=== PATIENT | female | born 1955 | race Caucasian/White ===

== ENCOUNTER 2016-08-01 21:13 | Emergency (ER) | payer OTHER ==
[~2016-08-01] VITALS: Ht 152.4 cm; Wt 87.5 kg
[2016-08-01 21:53] VITALS: BP 133/60
[2016-08-01 22:11] LABS: OBC FLU VALID
--- NOTE | 2016-08-01 22:36 | PHYS DOC ---
Past Medical History Past Medical History: Arthritis, Diabetes-Type II, Hypertension Additional Past Medical Histor: pt reports possible liver damage Past Surgical History: Cholecystectomy Alcohol Use: None Drug Use: None Adult General Chief Complaint Chief Complaint: CHEST WALL PAIN HPI HPI Patient is a 61 year old female who comes to the ED from work complaining of a cough for 2 days, pain in the center of her chest when she coughs and when she takes a deep breath. She's felt hot and cold for the last 2 days. She's had a cough. No URI symptoms. She has no history of heart disease. She's never been a smoker. She does not have lung disease. Her chest hurts in the middle when she coughs and when she takes a deep breath. 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 She has not had an influenza vaccine this season. PCP Dr. Trujillo Review of Systems Review of Systems Constitutional: She has felt hot and cold. Eyes: Denies change in visual acuity, redness, or eye pain [] HENT: Denies nasal congestion or sore throat [] Respiratory: As in history of present illness Cardiovascular: Chest pain as in history of present illness, does not sound cardiac, is worsened by cough and deep breath GI: Denies abdominal pain, nausea, vomiting, bloody stools or diarrhea [] : Denies dysuria or hematuria [] Musculoskeletal: Denies back pain or joint pain [] Integument: Denies rash or skin lesions [] Neurologic: Denies headache, focal weakness or sensory changes [] Allergies Allergies Allergies Coded Allergies Type Severity Reaction Last Updated Verified aspirin Allergy Intermediate 08/01/16 Yes Physical Exam Physical Exam Constitutional: Well developed, well nourished, no acute distress, non-toxic appearance. Pulse ox on room air 98-99%. Alert, good color, mentating normally. HENT: Normocephalic, atraumatic, bilateral external ears normal, nose normal. [ ] Eyes: conjunctiva normal, no discharge. [] Neck: Normal range of motion, no stridor. [] Cardiovascular:Heart rate regular rhythm, no murmur [] Lungs & Thorax: Bilateral breath sounds clear to auscultation [] Skin: Warm, dry, no erythema, no rash. [] Extremities: No tenderness, no cyanosis, no clubbing, ROM intact, no edema. [] Neurologic: Alert and oriented X 3, normal motor function, normal sensory function, no focal deficits noted. [] Current Patient Data Vital Signs Vital Signs Date Time Temp Pulse Resp B/P Pulse Ox O2 Delivery O2 Flow Rate FiO2 08/01/16 21:53 98 16 133/60 99 Room Air 08/01/16 21:29 98.9 98.9 Lab Values Laboratory Tests Test 08/01/16 21:36 Influenza Type A Antigen Negative (NEGATIVE) Influenza Type B Antigen Negative (NEGATIVE) EKG EKG 12-lead EKG read by me. Sinus tachycardia. Heart rate 102. There are no acute ST or T wave changes indicative of ischemia or infarction. No STEMI. 2122 [] Radiology/Procedures Radiology/Procedures Two-view chest x-ray read by me. No acute cardiopulmonary process. [] Course & Med Decision Making Course & Med Decision Making Pertinent Labs and Imaging studies reviewed. (See chart for details) 61-year-old female not feeling well today with subjective fever, chills, cough, chest pain with cough and deep breath. She is not a smoker, no history of heart or lung disease. Influenza and chest x-ray are negative. I believe she has a viral illness of some type that is not influenza. Discussed with the patient resting at home, antipyretics, reevaluate if worse. [] Dragon Disclaimer Dragon Disclaimer This electronic medical record was generated, in whole or in part, using a voice recognition dictation system. Departure Departure Impression: Primary Impression: Viral syndrome Additional Impression: Bronchitis Disposition: 01 HOME, SELF-CARE Condition: STABLE Referrals: TRINA TRUJILLO MD (PCP) Patient Instructions: Acute Bronchitis, [id number] Additional Instructions: As we discussed, your chest x-ray is normal and your influenza test is negative. I believe antibiotics will not help you and you have a viral illness. Rest, fluids, Tylenol or ibuprofen for fever and chills. Return if you become short of air or have new symptoms develop. Problem Qualifiers GUILLAUME LIRIANO MD Aug 01, 2016 22:36
--- NOTE | 2016-08-02 06:41 | EKG ---
[facility] [address] [place] [address] Test Date: 2016-08-01 Test Time: 21:23:11 Pat Name: NILESH LYON Department: Room: Gender: F Photographer Aerial: : 1955 Requested By: GUILLAUME LIRIANO Order Number: [id number] Reading MD: Arnadu Broussard Measurements Intervals [place] Rate: 102 P: 14 NE: 126 QRS: 4 QRSD: 86 T: 43 QT: 332 QTc: 437 Interpretive Statements SINUS TACHYCARDIA Electronically Signed On 08-03-2016 9:57:20 GENERAL PURCHASING [employer]ENT by Arnaud Broussard
--- NOTE | 2016-08-02 08:25 | RAD ---
Chest, 2 views, 08/01/2016: History: Cough, shortness of breath Comparison is made to a study from 08/21/2010. The heart size and pulmonary vascularity are normal. No pulmonary infiltrates are seen. There is no evidence of pleural fluid. Moderate hypertrophic spurring is present in the spine. IMPRESSION: No acute cardiopulmonary abnormality is detected.
== END 2016-08-01 22:44 | disposition home or self-care (01) ==
LOC: ER 21:13
DX: J40 Bronchitis, not specified as acute or chronic (principal); B34.9 Viral infection, unspecified; M19.90 Unspecified osteoarthritis, unspecified site; E11.9 Type 2 diabetes mellitus without complications; I10 Essential (primary) hypertension; Z90.49 Acquired absence of other specified parts of digestive tract; Z88.6 Allergy status to analgesic agent
CPT/HCPCS: 71020; 87804; 93005; 99285-25

== ENCOUNTER 2016-11-08 12:20 | Emergency (ER) | payer OTHER | END 2016-11-08 12:55 | disposition left against medical advice (07) | LOC: ER 12:53 | DX: H92.09 Otalgia, unspecified ear (principal); Z88.6 Allergy status to analgesic agent; Z53.21 Procedure and treatment not carried out due to patient leaving prior to being seen by health care provider ==

== ENCOUNTER 2017-02-14 20:42 | Inpatient (IN) | payer OTHER ==
[~2017-02-14] VITALS: Ht 162.6 cm; Wt 90.7 kg
[2017-02-14 21:19] LABS: BASO # 0.1 x10^3/uL (0.0-0.2); BASO % 1 % (0-3); EOS % 1 % (0-3); HEMATOCRIT 38.6 % (36.0-47.0); HEMOGLOBIN 13.1 g/dL (12.0-15.5); LYMPH # 2.4 x10^3/uL (1.0-4.8); LYMPH % 22 % (24-48); MEAN CORPUSCULAR HEMOGLOBIN 31 pg (25-35); MEAN CORPUSCULAR HGB CONC 34 g/dL (31-37); MEAN CORPUSCULAR VOLUME 91 fL (79-100); MONO % 6 % (0-9); NEUT % 70 % (31-73); PLATELET COUNT 170 x10^3/uL (140-400); RED BLOOD COUNT 4.24 x10^6/uL (3.50-5.40); RED CELL DISTRIBUTION WIDTH 13.8 % (11.5-14.5); WHITE BLOOD COUNT 11.1 x10^3/uL (4.0-11.0)
[2017-02-14] MEDS ORDERED: IV NORMAL SALINE 500ML BAG 500 ML IV SCH (21:30)
[2017-02-14 21:32] LABS: INR 1.4 (0.8-1.1); PROTHROMBIN TIME PATIENT 16.4 SEC (11.7-14.0)
[2017-02-14 21:39] LABS: CALCIUM 8.9 mg/dL (8.5-10.1); CREATININE 0.8 mg/dL (0.6-1.0); GFR 72.9; POTASSIUM 3.8 mmol/L (3.5-5.1)
[2017-02-14 21:44] LABS: ALBUMIN 2.9 g/dL (3.4-5.0); ALBUMIN/GLOBULIN RATIO 0.8 (1.0-1.7); TOTAL PROTEIN 6.4 g/dL (6.4-8.2)
[2017-02-14 22:46] LABS: NEG OBC FOB NEG; POS OBC FOB POS
--- NOTE | 2017-02-14 22:59 | PHYS DOC ---
Past Medical History Past Medical History: Arthritis, Diabetes-Type II, Hypertension Additional Past Medical Histor: pt reports possible liver damage Past Surgical History: Cholecystectomy Alcohol Use: None Drug Use: None Adult General Chief Complaint Chief Complaint: RECTAL BLEED HPI HPI Patient is a 62 year old female who presents with the complaint of black stools and black vomit. Patient states she has had 6 or 7 loose stools today that are black in color and has vomited twice with black substance in it. No red blood has been seen. She has no history of this. She's never had a bleeding ulcer. She is not on any blood thinners. She denies abdominal or rectal pain. Patient has had a history of chest pain and was seen at [facility] and had cardiology evaluation in November 2016 including a stress test. They told her that her chest pain is from stomach acid and put her on Nexium. She did not have endoscopy. The Nexium has not helped her symptoms of lower chest pain. She does not feel particularly weak or dizzy but she doesn't feel well. Past medical history includes diabetes and hypertension. No blood thinners. No history of NV. No history of GI bleed or bleeding ulcer. PCP Review of Systems Review of Systems Constitutional: Denies fever or chills [] HENT: Denies nasal congestion or sore throat [] Respiratory: Denies cough or shortness of breath [] Cardiovascular: As in history of present illness GI: As in history of present illness : Denies dysuria or hematuria [] Musculoskeletal: Denies back pain or joint pain [] Integument: Denies rash or skin lesions [] Neurologic: Denies headache, focal weakness or sensory changes [] Current Medications Current Medications Current Medications Medications (Trade) Dose Ordered Sig/Doreen Start Time Stop Time Status Last Admin Dose Admin Sodium Chloride 500 ml @ 500 mls/hr Q1H 02/14/17 21:30 02/14/17 21:39 DC 02/14/17 21:39 500 MLS/HR Allergies Allergies Allergies Coded Allergies Type Severity Reaction Last Updated Verified No Known Drug Allergies 02/14/17 No Physical Exam Physical Exam Constitutional: Well developed, well nourished, no acute distress, non-toxic appearance. Alert, mentating normally, vital signs stable HENT: Normocephalic, atraumatic, bilateral external ears normal, nose normal. [] Eyes: conjunctiva normal, no discharge. [] Neck: Normal range of motion, no stridor. [] Cardiovascular:Heart rate regular rhythm, no murmur [] Lungs & Thorax: Bilateral breath sounds clear to auscultation [] Abdomen: Bowel sounds normal, soft, nondistended, no tenderness, no masses, no pulsatile masses. [] Rectal exam: External unremarkable. Loose black stool in the vault was sent for occult blood. Skin: Warm, dry, no erythema, no rash. [] Extremities: No tenderness, no cyanosis, no clubbing, ROM intact, no edema. [] Neurologic: Alert and oriented X 3, normal motor function, normal sensory function, no focal deficits noted. [] Current Patient Data Vital Signs Vital Signs Date Time Temp Pulse Resp B/P (MAP) Pulse Ox O2 Delivery O2 Flow Rate FiO2 02/14/17 20:52 99.0 108 20 124/59 (80) 98 Room Air 99.0 Lab Values Laboratory Tests Test 02/14/17 21:05 White Blood Count 11.1 x10^3/uL (4.0-11.0) H Red Blood Count 4.24 x10^6/uL (3.50-5.40) Hemoglobin 13.1 g/dL (12.0-15.5) Hematocrit 38.6 % (36.0-47.0) Mean Corpuscular Volume 91 fL (79-100) Mean Corpuscular Hemoglobin 31 pg (25-35) Mean Corpuscular Hemoglobin Concent 34 g/dL (31-37) Red Cell Distribution Width 13.8 % (11.5-14.5) Platelet Count 170 x10^3/uL (140-400) Neutrophils (%) (Auto) 70 % (31-73) Lymphocytes (%) (Auto) 22 % (24-48) L Monocytes (%) (Auto) 6 % (0-9) Eosinophils (%) (Auto) 1 % (0-3) Basophils (%) (Auto) 1 % (0-3) Neutrophils # (Auto) 7.8 x10^3uL (1.8-7.7) H Lymphocytes # (Auto) 2.4 x10^3/uL (1.0-4.8) Monocytes # (Auto) 0.6 x10^3/uL (0.0-1.1) Eosinophils # (Auto) 0.1 x10^3/uL (0.0-0.7) Basophils # (Auto) 0.1 x10^3/uL (0.0-0.2) Prothrombin Time 16.4 SEC (11.7-14.0) H Prothrombin Time INR 1.4 (0.8-1.1) H PTT 35 SEC (24-38) Sodium Level 143 mmol/L (136-145) Potassium Level 3.8 mmol/L (3.5-5.1) Chloride Level 107 mmol/L (98-107) Carbon Dioxide Level 26 mmol/L (21-32) Anion Gap 10 (6-14) Blood Urea Nitrogen 27 mg/dL (7-20) H Creatinine 0.8 mg/dL (0.6-1.0) Estimated GFR (Cockcroft-Gault) 72.9 BUN/Creatinine Ratio 34 (6-20) H Glucose Level 186 mg/dL (70-99) H Calcium Level 8.9 mg/dL (8.5-10.1) Total Bilirubin 2.0 mg/dL (0.2-1.0) H Aspartate Amino Transferase (AST) 33 U/L (15-37) Alanine Aminotransferase (ALT) 29 U/L (14-59) Alkaline Phosphatase 129 U/L (46-116) H Total Protein 6.4 g/dL (6.4-8.2) Albumin 2.9 g/dL (3.4-5.0) L Albumin/Globulin Ratio 0.8 (1.0-1.7) L Laboratory Tests 02/14/17 21:05 Laboratory Tests 02/14/17 21:05 EKG EKG [] Radiology/Procedures Radiology/Procedures [] Course & Med Decision Making Course & Med Decision Making Pertinent Labs and Imaging studies reviewed. (See chart for details) 62-year-old female without history of GI bleed or bleeding ulcer presents with 2 episodes of vomiting with black in it and 6 or 7 loose black stools. Her stool is fecal occult blood positive. Patient is mildly tachycardic and was given IV fluids 500 mL. She remained stable in the ED. She is not anemic. I discussed the case with Dr. Payne taking calls for . She will admit the patient. I wrote bridge orders. [] Dragon Disclaimer Dragon Disclaimer This electronic medical record was generated, in whole or in part, using a voice recognition dictation system. Departure Departure Impression: Primary Impression: GI bleed Disposition: 09 ADMITTED INPATIENT Admitting Physician: Blanca Mac Condition: STABLE Referrals: BLANCA MAC MD (PCP) GUILLAUME LIRIANO MD Feb 14, 2017 22:59
[2017-02-14] MEDS ORDERED: ONDANSETRON PF 4 MG/2 ML VIAL. IV PRN (23:00)
[2017-02-14] MEDS ORDERED: ONDANSETRON PF 4 MG/2 ML VIAL. IV ONE (23:15)
[2017-02-15] VITALS (12 sets, daily range): BP systolic 85–136; BP diastolic 49–71
[2017-02-15] MEDS ORDERED: PANTOPRAZOLE IV PUSH 40 MG VIAL. IVP ONE (01:00)
[2017-02-15] MEDS: PANTOPRAZOLE SODIUM IV 80 MG in IV NORMAL SALINE 100ML 100 ML IV SCH ×3 (02:04→21:23)
[2017-02-15] MEDS ORDERED: GLIP5TAB10 PO (03:06)
[2017-02-15] MEDS ORDERED: ESOM40CA PO (03:06)
[2017-02-15] MEDS ORDERED: POTA10TA5 PO (03:06)
[2017-02-15] MEDS ORDERED: METF-620 PO (03:06)
[2017-02-15] MEDS ORDERED: ASPI-630 PO (03:06)
[2017-02-15] MEDS ORDERED: TRIA1TAB3 PO (03:06)
[2017-02-15] MEDS ORDERED: METF500T4 PO (03:06)
[2017-02-15] MEDS ORDERED: IBUP-1007 PO (03:06)
[2017-02-15] MEDS ORDERED: GLIP10TA13 PO (03:06)
--- NOTE | 2017-02-15 03:50 | ACF ---
Admission Forms Criteria GASTROINTESTINAL BLEEDING Clinical Indications for Inpatient Care (Place 'X' for any and all applicable criteria): Ongoing inpatient care may be indicated for gastrointestinal bleeding with ANY ONE of the following (4)(20)(21)(22)(23)(24): [ ]I. Active bleeding (eg, fresh voluminous blood in emesis or nasogastric aspirate, or per rectum) [X]II. Hemodynamic instability [ ]III. Anticoagulation therapy or coagulopathy ((eg, advanced liver disease, irreversible anticoagulation) [ ]IV. Ischemic colitis (22) [ ]V. Endoscopy showing arterial bleeding, adherent clot, nonbleeding visible vessel, varices, flat red spots, ulcer size greater than 2 cm, or portal hypertensive gastropathy [ ]. High-risk low platelet count [ ]VII. Anemia requiring inpatient care as indicated by ANY ONE of the following a)[ ] Cognitive impairment b)[ ] Syncope c)[ ] Heart failure d)[ ] Chest pain e)[ ] Dyspnea f)[ ] Other findings suggesting inadequate perfusion (eg, peripheral or myocardial ischemia, end organ dysfunction) [ ]VIII. High-risk low platelet count [ ]IX. Suspected variceal cause of bleeding as indicated by ANY ONE of the following(27)(28): a)[ ] Known varices b)[ ] Hepatomegaly or splenomegaly c)[ ] Ascites d)[ ] Jaundice or scleral icterus e)[ ] History of liver disease (eg, cirrhosis) f)[ ] Physical findings of portal hypertension (eg, caput medusa) g)[ ] Comorbid disorder indicating risk for portal vein thrombosis (eg , abdominal surgery, sepsis, shock, exchange transfusion, prior umbilical vein catheterization) Extended stay may be needed until ALL of the following are present(20)(38)(47): [ ]a) Hemodynamic stability [ ]b) No evidence of active bleeding (eg, stable Hematocrit) [ ]c) Platelet count, prothrombin time, and partial thromboplastin time acceptable for next level of care [ ]d) Surgical or other acute intervention not needed [ ]e) Oral hydration and diet tolerated The original [employer] content created by Yen Murillo has been revised. The portions of the content which have been revised are identified through the use of italic text or in bold, and Yen Murillo has neither reviewed nor approved the modified material. All other unmodified content is copyright [facility]. Please see references footnoted in the original [facility] edition 2016 Admission Criteria Met?: Yes ANANYA KING Feb 15, 2017 03:50
[2017-02-15 05:09] LABS: BASO # 0.1 x10^3/uL (0.0-0.2); BASO % 1 % (0-3); EOS % 2 % (0-3); HEMATOCRIT 33.5 % (36.0-47.0); HEMOGLOBIN 11.4 g/dL (12.0-15.5); LYMPH % 33 % (24-48); MEAN CORPUSCULAR HEMOGLOBIN 32 pg (25-35); MEAN CORPUSCULAR HGB CONC 34 g/dL (31-37); MEAN CORPUSCULAR VOLUME 92 fL (79-100); MONO % 8 % (0-9); NEUT % 57 % (31-73); PLATELET COUNT 156 x10^3/uL (140-400); RED BLOOD COUNT 3.63 x10^6/uL (3.50-5.40); RED CELL DISTRIBUTION WIDTH 13.9 % (11.5-14.5); WHITE BLOOD COUNT 12.3 x10^3/uL (4.0-11.0)
--- NOTE | 2017-02-15 08:09 | PDOC1 ---
History and Physical Date of Admission Date of Admission DATE: 02/14/17 Identification/Chief Complaint Chief Complaint Throwing up blood Problems: Source Source: Patient History of Present Illness History of Present Illness Pt states that around 10am yesterday morning she started throwing up blood. She decided to not come in to be seen right away because it stopped. She had diarrhea off and on throughout the day with dark stools. Before going to work around 4pm, started vomiting blood again so decided to come to the ER. She has never had anything similar. Pt did not really eat anything yesterday; had spaghetti the evening before. Denies any abdominal pain. Past Medical History Cardiovascular: HTN Pulmonary: No pertinent hx GI: GERD Heme/Onc: No pertinent hx Hepatobiliary: No pertinent hx Psych: No pertinent hx Rheumatologic: No pertinent hx Infectious disease: No pertinent hx ENT: No pertinent hx Renal/: No pertinent hx Endocrine: Diabetes Dermatology: No pertinent hx Past Surgical History Past Surgical History: Cholecystectomy Family History Family History: No Significant Social History Smoke: No ALCOHOL: none Drugs: None Current Problem List Problem List Problems Medical Problems: (1) GI bleed Status: Acute Problems: Current Medications Current Medications Current Medications Sodium Chloride 500 ml @ 500 mls/hr Q1H IV Last administered on 02/14/17 21:39 ; Start 02/14/17 at 21:30; Stop 02/14/17 at 21:39; Status DC Ondansetron HCl (Zofran) 4 mg 1X ONCE IV Last administered on 02/14/17 23:02; Start 02/14/17 at 23:15; Stop 02/14/17 at 23:16; Status DC Ondansetron HCl (Zofran) 4 mg PRN Q8HRS PRN IV NAUSEA/VOMITING; Start 02/14/17 at 23:00; Stop 02/15/17 at 22:59 Pantoprazole Sodium (Protonix Vial) 80 mg 1X ONCE IVP Last administered on 02/15 01:51; Start 02/15/17 at 01:00; Stop 02/15/17 at 01:01; Status DC Pantoprazole Sodium 80 mg/ Sodium Chloride 100 ml @ 10 mls/hr Q10H IV Last administered on 02/15/17 02:04; Start 02/15/17 at 01:00; Stop 02/16/17 at 00:59 Active Scripts Active Reported Klor-Con 10 (Potassium Chloride) 10 Meq Tablet.er 1 Tab PO DAILY Metformin Hcl 500 Mg Tablet 500 Mg PO DAILYWSUP Metformin Hcl 1,000 Mg Tablet 1,000 Mg PO DAILYWBKFT Aspirin 81 Mg Tab.chew 1 Tab PO DAILY Nexium Capsule (Esomeprazole Magnesium) 40 Mg Capsule.dr 1 Cap PO DAILY Ibuprofen 600 Mg Tablet 600 Mg PO PRN Q8HRS Triamterene-Hctz 37.5-25 Mg Tb (Triamterene/Hydrochlorothiazid) 1 Each Tablet 1 Tab PO DAILY Glipizide 10 Mg Tablet 1 Tab PO DAILYWSUP Glipizide 5 Mg Tablet 1 Tab PO DAILYWBKFT Allergies Allergies: Coded Allergies: No Known Drug Allergies (Unverified , 02/14/17) ROS General: No: Chills, Night Sweats PSYCHOLOGICAL ROS: No: Anxiety, Depression Eyes: No Decreased vision, No Eye Pain HEENT: No: Nasal congestion, Sore Throat ALLERGY AND IMMUNOLOGY: No: Hives, Post Nasal Drip Hematological and Lymphatic: No: Bleeding Problems, Night Sweats Respiratory: No: Cough, Shortness of breath Cardiovascular: No Chest Pain, No Palpitations, No Edema Gastrointestinal: Yes Nausea, Yes Vomiting, Yes Diarrhea, No Abdominal Pain, No Constipation Genitourinary: No Dysuria, No Urgency Musculoskeletal: No Joint Pain, No Muscle Pain Neurological: No Impaired Coord/balance, No Numbness/Tingling Skin: No Rash, No Skin Lesion Changes Physical Exam General: Alert, Oriented X3, Cooperative, No acute distress HEENT: Atraumatic, PERRLA, EOMI, Mucous membr. moist/pink Lungs: Clear to auscultation, Normal air movement Heart: RRR, no rubs, no gallops, no murmurs Abdomen: Normal bowel sounds, Soft, No tenderness, No hepatosplenomegaly Extremities: No clubbing, No cyanosis, No edema Skin: No rashes, No breakdown, No significant lesion Neuro: Normal speech, Cranial nerves 3-12 NL Psych/Mental Status: Mental status NL, Mood NL Vitals Vitals Vital Signs Date Time Temp Pulse Resp B/P (MAP) Pulse Ox O2 Delivery O2 Flow Rate FiO2 02/15/17 07:00 98.4 96 20 126/65 (85) 99 Room Air 98.4 Labs Labs Laboratory Tests Test 02/14/17 21:05 02/14/17 22:36 02/15/17 04:10 02/15/17 07:09 White Blood Count 11.1 x10^3/uL (4.0-11.0) 12.3 x10^3/uL (4.0-11.0) Red Blood Count 4.24 x10^6/uL (3.50-5.40) 3.63 x10^6/uL (3.50-5.40) Hemoglobin 13.1 g/dL (12.0-15.5) 11.4 g/dL (12.0-15.5) Hematocrit 38.6 % (36.0-47.0) 33.5 % (36.0-47.0) Mean Corpuscular Volume 91 fL (79-100) 92 fL (79-100) Mean Corpuscular Hemoglobin 31 pg (25-35) 32 pg (25-35) Mean Corpuscular Hemoglobin Concent 34 g/dL (31-37) 34 g/dL (31-37) Red Cell Distribution Width 13.8 % (11.5-14.5) 13.9 % (11.5-14.5) Platelet Count 170 x10^3/uL (140-400) 156 x10^3/uL (140-400) Neutrophils (%) (Auto) 70 % (31-73) 57 % (31-73) Lymphocytes (%) (Auto) 22 % (24-48) 33 % (24-48) Monocytes (%) (Auto) 6 % (0-9) 8 % (0-9) Eosinophils (%) (Auto) 1 % (0-3) 2 % (0-3) Basophils (%) (Auto) 1 % (0-3) 1 % (0-3) Neutrophils # (Auto) 7.8 x10^3uL (1.8-7.7) 7.1 x10^3uL (1.8-7.7) Lymphocytes # (Auto) 2.4 x10^3/uL (1.0-4.8) 4.0 x10^3/uL (1.0-4.8) Monocytes # (Auto) 0.6 x10^3/uL (0.0-1.1) 0.9 x10^3/uL (0.0-1.1) Eosinophils # (Auto) 0.1 x10^3/uL (0.0-0.7) 0.2 x10^3/uL (0.0-0.7) Basophils # (Auto) 0.1 x10^3/uL (0.0-0.2) 0.1 x10^3/uL (0.0-0.2) Prothrombin Time 16.4 SEC (11.7-14.0) Prothromb Time International Ratio 1.4 (0.8-1.1) Activated Partial Thromboplast Time 35 SEC (24-38) Sodium Level 143 mmol/L (136-145) Potassium Level 3.8 mmol/L (3.5-5.1) Chloride Level 107 mmol/L (98-107) Carbon Dioxide Level 26 mmol/L (21-32) Anion Gap 10 (6-14) Blood Urea Nitrogen 27 mg/dL (7-20) Creatinine 0.8 mg/dL (0.6-1.0) Estimated GFR (Cockcroft-Gault) 72.9 BUN/Creatinine Ratio 34 (6-20) Glucose Level 186 mg/dL (70-99) Calcium Level 8.9 mg/dL (8.5-10.1) Total Bilirubin 2.0 mg/dL (0.2-1.0) Aspartate Amino Transf (AST/SGOT) 33 U/L (15-37) Alanine Aminotransferase (ALT/SGPT) 29 U/L (14-59) Alkaline Phosphatase 129 U/L (46-116) Total Protein 6.4 g/dL (6.4-8.2) Albumin 2.9 g/dL (3.4-5.0) Albumin/Globulin Ratio 0.8 (1.0-1.7) Stool Occult Blood Positive (NEG) Glucose (Fingerstick) 137 mg/dL (70-99) Laboratory Tests Test 02/14/17 21:05 02/14/17 22:36 02/15/17 04:10 02/15/17 07:09 White Blood Count 11.1 x10^3/uL (4.0-11.0) 12.3 x10^3/uL (4.0-11.0) Red Blood Count 4.24 x10^6/uL (3.50-5.40) 3.63 x10^6/uL (3.50-5.40) Hemoglobin 13.1 g/dL (12.0-15.5) 11.4 g/dL (12.0-15.5) Hematocrit 38.6 % (36.0-47.0) 33.5 % (36.0-47.0) Mean Corpuscular Volume 91 fL (79-100) 92 fL (79-100) Mean Corpuscular Hemoglobin 31 pg (25-35) 32 pg (25-35) Mean Corpuscular Hemoglobin Concent 34 g/dL (31-37) 34 g/dL (31-37) Red Cell Distribution Width 13.8 % (11.5-14.5) 13.9 % (11.5-14.5) Platelet Count 170 x10^3/uL (140-400) 156 x10^3/uL (140-400) Neutrophils (%) (Auto) 70 % (31-73) 57 % (31-73) Lymphocytes (%) (Auto) 22 % (24-48) 33 % (24-48) Monocytes (%) (Auto) 6 % (0-9) 8 % (0-9) Eosinophils (%) (Auto) 1 % (0-3) 2 % (0-3) Basophils (%) (Auto) 1 % (0-3) 1 % (0-3) Neutrophils # (Auto) 7.8 x10^3uL (1.8-7.7) 7.1 x10^3uL (1.8-7.7) Lymphocytes # (Auto) 2.4 x10^3/uL (1.0-4.8) 4.0 x10^3/uL (1.0-4.8) Monocytes # (Auto) 0.6 x10^3/uL (0.0-1.1) 0.9 x10^3/uL (0.0-1.1) Eosinophils # (Auto) 0.1 x10^3/uL (0.0-0.7) 0.2 x10^3/uL (0.0-0.7) Basophils # (Auto) 0.1 x10^3/uL (0.0-0.2) 0.1 x10^3/uL (0.0-0.2) Prothrombin Time 16.4 SEC (11.7-14.0) Prothromb Time International Ratio 1.4 (0.8-1.1) Activated Partial Thromboplast Time 35 SEC (24-38) Sodium Level 143 mmol/L (136-145) Potassium Level 3.8 mmol/L (3.5-5.1) Chloride Level 107 mmol/L (98-107) Carbon Dioxide Level 26 mmol/L (21-32) Anion Gap 10 (6-14) Blood Urea Nitrogen 27 mg/dL (7-20) Creatinine 0.8 mg/dL (0.6-1.0) Estimated GFR (Cockcroft-Gault) 72.9 BUN/Creatinine Ratio 34 (6-20) Glucose Level 186 mg/dL (70-99) Calcium Level 8.9 mg/dL (8.5-10.1) Total Bilirubin 2.0 mg/dL (0.2-1.0) Aspartate Amino Transf (AST/SGOT) 33 U/L (15-37) Alanine Aminotransferase (ALT/SGPT) 29 U/L (14-59) Alkaline Phosphatase 129 U/L (46-116) Total Protein 6.4 g/dL (6.4-8.2) Albumin 2.9 g/dL (3.4-5.0) Albumin/Globulin Ratio 0.8 (1.0-1.7) Stool Occult Blood Positive (NEG) Glucose (Fingerstick) 137 mg/dL (70-99) VTE Prophylaxis Ordered VTE Prophylaxis Devices: Yes VTE Pharmacological Prophylaxi: No Assessment/Plan Assessment/Plan Pt is a 62yo CF admitted for GI bleed 1)GI Bleed- GI consulted in the ER. Hb stable. Has not had any more episodes of vomiting or diarrhea since admission. Pt started on pantoprazole IV in the ER. CTM 2)DM2- HbA1C pending. Will hold Metformin and Glipizide for now. Start SSI. 3)HTN- BP currently stable. Will hold Triamterene/HCTZ 37.5/25mg and CTM 4)Leukocytosis- improving 5)PEM- moderate 6)Elevated bilirubin DOC CHAVES MD Feb 15, 2017 08:09
[2017-02-15] MEDS ORDERED: DEXTROSE 50% 25 GM / 50ML DISP.SYRIN. IV PRN (08:15)
--- NOTE | 2017-02-15 09:19 | PDOC2 ---
GI CONSULT Reason For Consult: GI Bleed HPI: HPI: 62 y/o female admitted through ER. Reports vomiting black/red blood and black diarrhea x 2 yesterday. Labs show Hgb 13.1 to 11.4, INR 1.4, BUN 27 (w/ normal Cr), bili 2, hemoccult positive stool. 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 Also takes ASA 81mg QD + ibuprofen 3x weekly for back pain. Denies SOA, chest pain, dizziness, abd pain, reflux/heartburn, dysphagia, constipation, hematochezia, change in appetite, and weight loss. Recalls previous EGD and colonoscopy "a few years ago" (perhaps w/ Dr. Lott @ [facility]) perhaps had polyps. Additionally says "part of her liver is ," unclear when /how this was diagnosed. (Note CT in 2016 showed normal liver w/ splenomegaly, previous CT in 2014 suspicious for cirrhosis w/ portal hypertension and gastric varices.) NPO on PPI drip. PMH: PMH: HTN, DM, GERD, cirrhosis, diverticulosis, hemorrhoids, cholecystectomy FH: Family History: Cancer (pancreatic, renal) Social History: Smoke: No ALCOHOL: none Drugs: None ROS: GEN: Denies fevers, chills, sweats HEENT: Denies blurred vision, sore throat CV: Denies chest pain RESP: Denies shortness of air, cough GI: Per HPI : Denies hematuria, dysuria ENDO: Denies weight changes NEURO: Denies confusion, dizziness MSK: +back pain SKIN: Denies jaundice, pruritus Vitals: Vitals: Vital Signs Date Time Temp Pulse Resp B/P (MAP) Pulse Ox O2 Delivery O2 Flow Rate FiO2 02/15/17 07:00 98.4 96 20 126/65 (85) 99 Room Air 98.4 Labs: Labs: Laboratory Tests Test 02/14/17 21:05 02/14/17 22:36 02/15/17 04:10 02/15/17 07:09 White Blood Count 11.1 x10^3/uL (4.0-11.0) 12.3 x10^3/uL (4.0-11.0) Red Blood Count 4.24 x10^6/uL (3.50-5.40) 3.63 x10^6/uL (3.50-5.40) Hemoglobin 13.1 g/dL (12.0-15.5) 11.4 g/dL (12.0-15.5) Hematocrit 38.6 % (36.0-47.0) 33.5 % (36.0-47.0) Mean Corpuscular Volume 91 fL (79-100) 92 fL (79-100) Mean Corpuscular Hemoglobin 31 pg (25-35) 32 pg (25-35) Mean Corpuscular Hemoglobin Concent 34 g/dL (31-37) 34 g/dL (31-37) Red Cell Distribution Width 13.8 % (11.5-14.5) 13.9 % (11.5-14.5) Platelet Count 170 x10^3/uL (140-400) 156 x10^3/uL (140-400) Neutrophils (%) (Auto) 70 % (31-73) 57 % (31-73) Lymphocytes (%) (Auto) 22 % (24-48) 33 % (24-48) Monocytes (%) (Auto) 6 % (0-9) 8 % (0-9) Eosinophils (%) (Auto) 1 % (0-3) 2 % (0-3) Basophils (%) (Auto) 1 % (0-3) 1 % (0-3) Neutrophils # (Auto) 7.8 x10^3uL (1.8-7.7) 7.1 x10^3uL (1.8-7.7) Lymphocytes # (Auto) 2.4 x10^3/uL (1.0-4.8) 4.0 x10^3/uL (1.0-4.8) Monocytes # (Auto) 0.6 x10^3/uL (0.0-1.1) 0.9 x10^3/uL (0.0-1.1) Eosinophils # (Auto) 0.1 x10^3/uL (0.0-0.7) 0.2 x10^3/uL (0.0-0.7) Basophils # (Auto) 0.1 x10^3/uL (0.0-0.2) 0.1 x10^3/uL (0.0-0.2) Prothrombin Time 16.4 SEC (11.7-14.0) Prothromb Time International Ratio 1.4 (0.8-1.1) Activated Partial Thromboplast Time 35 SEC (24-38) Sodium Level 143 mmol/L (136-145) Potassium Level 3.8 mmol/L (3.5-5.1) Chloride Level 107 mmol/L (98-107) Carbon Dioxide Level 26 mmol/L (21-32) Anion Gap 10 (6-14) Blood Urea Nitrogen 27 mg/dL (7-20) Creatinine 0.8 mg/dL (0.6-1.0) Estimated GFR (Cockcroft-Gault) 72.9 BUN/Creatinine Ratio 34 (6-20) Glucose Level 186 mg/dL (70-99) Calcium Level 8.9 mg/dL (8.5-10.1) Total Bilirubin 2.0 mg/dL (0.2-1.0) Aspartate Amino Transf (AST/SGOT) 33 U/L (15-37) Alanine Aminotransferase (ALT/SGPT) 29 U/L (14-59) Alkaline Phosphatase 129 U/L (46-116) Total Protein 6.4 g/dL (6.4-8.2) Albumin 2.9 g/dL (3.4-5.0) Albumin/Globulin Ratio 0.8 (1.0-1.7) Stool Occult Blood Positive (NEG) Glucose (Fingerstick) 137 mg/dL (70-99) Allergies: Coded Allergies: No Known Drug Allergies (Unverified , 02/14/17) Medications: Current Medications Medications (Trade) Dose Ordered Sig/Doreen Route PRN Reason Start Time Stop Time Status Last Admin Dose Admin Sodium Chloride 500 ml @ 500 mls/hr Q1H IV 02/14/17 21:30 02/14/17 21:39 DC 02/14/17 21:39 Ondansetron HCl (Zofran) 4 mg 1X ONCE IV 02/14/17 23:15 02/14/17 23:16 DC 02/14/17 23:02 Pantoprazole Sodium (Protonix Vial) 80 mg 1X ONCE IVP 02/15/17 01:00 02/15/17 01:01 DC 02/15/17 01:51 Pantoprazole Sodium 80 mg/ Sodium Chloride 100 ml @ 10 mls/hr Q10H IV 02/15/17 01:00 02/16/17 00:59 02/15/17 08:17 Imaging: Imaging: - PE: GEN: NAD HEENT: Atraumatic, PERRL LUNGS: CTAB HEART: RRR ABD: NABS, S/ND/NT EXTREMITY: No edema SKIN: No rashes, no jaundice NEURO/PSYCH: A & O 3 A/P: A/P: Hematemesis, melena, hemoccult positive stool -recent cardiac eval for CP, started on Nexium -takes ASA and ibuprofen -Hgb from 13.1 to 11.4, hemoccult positive, BUN 27 Cirrhosis, portal hypertension, gastric varices -INR 1.4, bili 2 -previous imaging as above -- EGD this evening, r/o PUD, asses gastric varices, etc. ?candidate for TIPS - check ammonia UPDATE: EGD and colonoscopy in 2016: portal hypertensive gastropathy, gastric varices, hemorrhoids. CHIDI CANALES Feb 15, 2017 09:19
[2017-02-15] MEDS: INSULIN ASPART 300 UNITS/3 ML INSULN.PEN SQ SCH ×2 (12:00→17:00)
[2017-02-15] MEDS ORDERED: IV RINGERS,LACTATED 1000ML 1,000 ML IV SCH ×2 (14:49→15:00)
[2017-02-15] MEDS ORDERED: LIDOCAINE 2% PF Vial for OR 5 ML VIAL. ONE (15:18)
[2017-02-15] MEDS ORDERED: PROPOFOL 20 ML IV ONE (15:18)
--- NOTE | 2017-02-15 15:39 | PDOC4 ---
Operative Note Operative Note EGD Meds propofol per anesthesia Pre-op dx hematemesis/acute blood loss anemia/hx gastric varices Post-op dx gastric varices with pigmented protuberance consistent with recent bleed Plan npo sandostatin drip [facility] transfer for glue injections of varices as elevated ammonia level is contra-indication for TIPS placement DANIEL STANTON MD Feb 15, 2017 15:39
[2017-02-15] MEDS ORDERED: OCTREOTIDE 500 MCG in IV NORMAL SALINE 100ML 100 ML IV PRN (16:00)
[2017-02-16] VITALS (11 sets, daily range): BP systolic 95–119; BP diastolic 45–66
[2017-02-16 04:53] LABS: HEMATOCRIT 30.6 % (36.0-47.0); HEMOGLOBIN 10.4 g/dL (12.0-15.5); RED BLOOD COUNT 3.32 x10^6/uL (3.50-5.40); RED CELL DISTRIBUTION WIDTH 13.8 % (11.5-14.5)
[2017-02-16] MEDS ORDERED: PANTOPRAZOLE SODIUM IV 80 MG in IV NORMAL SALINE 100ML 100 ML IV SCH (07:00)
[2017-02-16] MEDS: INSULIN ASPART 300 UNITS/3 ML INSULN.PEN SQ SCH (07:37)
--- NOTE | 2017-02-16 10:19 | PDOC3 ---
Discharge Summary* Date of Admission: Feb 14, 2017 Date of Discharge: Feb 16, 2017 Admitting Diagnosis Problems Medical Problems: (1) GI bleed Status: Acute Problems: Final Diagnosis Upper GI Bleed 2/2 varices, DM2, HTN, Leukocytosis-improving, PEM-moderate, Hx of cirrhosis with portal hypertension, Elevated Bilirubin CONSULTS GI Procedures EGD- gastric varices with no active bleeding but staining consistent with recent bleed Brief Hospital Course DISCHARGE PHYSICAL EXAM General: Alert, Oriented X3, Cooperative, No acute distress HEENT: Atraumatic, PERRLA, EOMI, Mucous membr. moist/pink Lungs: Clear to auscultation, Normal air movement Heart: RRR, no rubs, no gallops, no murmurs Abdomen: Normal bowel sounds, Soft, No tenderness, No hepatosplenomegaly Extremities: No clubbing, No cyanosis, No edema Skin: No rashes, No breakdown, No significant lesion Neuro: Normal speech, Cranial nerves 3-12 NL Psych/Mental Status: Mental status NL, Mood NL Pt is a 62yo CF admitted for GI bleed 1)GI Bleed- GI following, s/p EGD yesterday which showed large varix with signs consistent with recent bleed. Hb decreased some since admission but is stable. No further bleeding since admission. Pt started on Sandostatin gtt and has been accepted for transfer by for glue injection of varices (this was opted given cirrhosis, portal hypertension and elevated NH4 levels). Pt continued on IV Pantoprazole 2)DM2- well controlled with HbA1C of 5.8. Holding Metformin and Glipizide for now. Pt on SSI. 3)HTN- BP currently stable without medications. Holding Triamterene/HCTZ 37.5/ 25mg and CTM 4)Leukocytosis- improving 5)PEM- moderate 6)Cirrhosis- with portal hypertension, elevated NH4, elevated bilirubin Disposition/Orders: D/C to Another Facility CONDITION AT DISCHARGE: Improved, Stable Diet: NPO Scheduled Aspirin (Aspirin), 1 TAB PO DAILY, (Reported) Esomeprazole Magnesium (Nexium Capsule), 1 CAP PO DAILY, (Reported) Glipizide (Glipizide), 1 TAB PO DAILYWBKFT, (Reported) Glipizide (Glipizide), 1 TAB PO DAILYWSUP, (Reported) Ibuprofen (Ibuprofen), 600 MG PO PRN Q8HRS, (Reported) Metformin Hcl (Metformin Hcl), 1,000 MG PO DAILYWBKFT, (Reported) Metformin Hcl (Metformin Hcl), 500 MG PO DAILYWSUP, (Reported) Potassium Chloride (Klor-Con 10), 1 TAB PO DAILY, (Reported) Triamterene/Hydrochlorothiazid (Triamterene-Hctz 37.5-25 Mg Tb), 1 TAB PO DAILY, (Reported) PCP Follow up with Dr. Trujillo 7-10 days after discharge from Time Spent Total time spent with patient [] minutes for coordination of care, counseling, and education. DOC CHAVES MD Feb 16, 2017 10:19
== END 2017-02-16 11:26 | disposition short-term general hospital (02) | DRG 378 ==
LOC: ER 20:42 → 5 SOUTH 22:25 → 1 WEST ICU 02-15 16:30
PROVIDERS: ADMIT Family Medicine; ATTEND Family Medicine
PROC: 0DJ08ZZ Inspection of Upper Intestinal Tract, Via Natural or Artificial Opening Endoscopic (ICD-10-PCS; principal; 2017-02-14)
DX: K92.2 Gastrointestinal hemorrhage, unspecified (principal); D62 Acute posthemorrhagic anemia; E44.0 Moderate protein-calorie malnutrition; K76.6 Portal hypertension; I86.4 Gastric varices; K21.9 Gastro-esophageal reflux disease without esophagitis; K64.9 Unspecified hemorrhoids; K74.60 Unspecified cirrhosis of liver; E11.9 Type 2 diabetes mellitus without complications; D72.829 Elevated white blood cell count, unspecified; M19.90 Unspecified osteoarthritis, unspecified site; I10 Essential (primary) hypertension; Z90.49 Acquired absence of other specified parts of digestive tract; Z68.34 Body mass index [BMI] 34.0-34.9, adult; Z79.899 Other long term (current) drug therapy; Z79.1 Long term (current) use of non-steroidal anti-inflammatories (NSAID); Z80.9 Family history of malignant neoplasm, unspecified
CPT/HCPCS: 36415; 80053; 82140; 82274; 82962; 83036; 85027; 85610; 85730; 87641; 96374; C9113; J1815; J2001; J2354; J2405; J2704; J7040; J7120; 99285-25

== ENCOUNTER 2017-10-25 13:16 | Emergency (ER) | payer OTHER ==
[2017-10-25] MEDS: oxyCODONE IR 5 MG TABLET PO (15:25)
== END 2017-10-25 16:36 | disposition home or self-care (01) ==
LOC: ER 13:16
DX: S42.351A Displaced comminuted fracture of shaft of humerus, right arm, initial encounter for closed fracture (principal); E11.9 Type 2 diabetes mellitus without complications; I10 Essential (primary) hypertension; M19.90 Unspecified osteoarthritis, unspecified site; Z90.49 Acquired absence of other specified parts of digestive tract; W01.0XXA Fall on same level from slipping, tripping and stumbling without subsequent striking against object, initial encounter; Y93.01 Activity, walking, marching and hiking; Y92.480 Sidewalk as the place of occurrence of the external cause; Y99.8 Other external cause status
CPT/HCPCS: 73060; 73080; 73110; 99284

== ENCOUNTER 2017-10-29 15:58 | Emergency (ER) | payer OTHER | END 2017-10-29 16:41 | disposition home or self-care (01) | LOC: ER 15:58 | DX: S42.351A Displaced comminuted fracture of shaft of humerus, right arm, initial encounter for closed fracture (principal); I10 Essential (primary) hypertension; E11.9 Type 2 diabetes mellitus without complications; Z90.49 Acquired absence of other specified parts of digestive tract; X58.XXXA Exposure to other specified factors, initial encounter; Y93.89 Activity, other specified; Y99.8 Other external cause status; Y92.89 Other specified places as the place of occurrence of the external cause | CPT/HCPCS: 99283 ==

== ENCOUNTER → 2017-12-27 | Outpatient (CLI) | payer OTHER | END | disposition home or self-care (01) | LOC: PMGORTHO 07:56 | DX: S42.351D Displaced comminuted fracture of shaft of humerus, right arm, subsequent encounter for fracture with routine healing (principal); X58.XXXD Exposure to other specified factors, subsequent encounter | CPT/HCPCS: 97010; 97010-GO; 97110-GO ==

== ENCOUNTER 2018-01-11 10:58 | Emergency (ER) | payer OTHER ==
[2018-01-11] MEDS: oxyCODONE IR 5 MG TABLET PO (11:34)
[2018-01-11] MEDS: DIPHTH,PERTUSS(ACELL),TET TOX 0.5 ML DISP.SYRIN. VAX IM (12:09)
== END 2018-01-11 12:35 | disposition home or self-care (01) ==
LOC: ER 10:58
DX: S20.211A Contusion of right front wall of thorax, initial encounter (principal); S40.011A Contusion of right shoulder, initial encounter; S80.212A Abrasion, left knee, initial encounter; S80.211A Abrasion, right knee, initial encounter; S50.312A Abrasion of left elbow, initial encounter; M19.90 Unspecified osteoarthritis, unspecified site; E11.9 Type 2 diabetes mellitus without complications; I10 Essential (primary) hypertension; W10.8XXA Fall (on) (from) other stairs and steps, initial encounter; Y93.01 Activity, walking, marching and hiking; Y99.8 Other external cause status; Y92.89 Other specified places as the place of occurrence of the external cause
CPT/HCPCS: 71101; 73060; 90471; 90715; 99284-25

== ENCOUNTER → 2018-09-25 | Outpatient (CLI) | payer OTHER ==
[2018-01-11 11:06] VITALS: BP 135/62
[~2018-09-25] MED LIST: ASPI-630 PO; CALC500T54 PO; ERGO500027 PO; ESOM40CA PO; GLIP10TA13 PO; GLIP5TAB10 PO; IBUP-1007 PO; LACT20SO PO; METF10007 PO; METF500T16 PO; ONDA8TAB9 SL; OXYC1TAB15 PO; OXYC5CAP PO; POTA10TA12 PO; RIFA550T4 PO; SPIR100T4 PO; TRAM50TA PO; TRIA1TAB3 PO
--- NOTE | 2018-09-26 09:32 | KCIC ---
EXAM: MRI right shoulder DATE: 09/25/2018 5:00 PM COMPARISON: None INDICATION: Right shoulder pain. History of humeral fracture. TECHNIQUE: Multiplanar, multisequence MRI of the right shoulder was performed without contrast. FINDINGS: Of note, exam is limited by motion artifact despite repeating sequences. Moderate AC joint degenerative changes are seen with prominent inferior projecting osteophytes and capsular hypertrophy. Type I acromion. No os acromiale. Subacromial-subdeltoid bursal distention, bursitis and from full-thickness rotator cuff tear described below. No significant glenohumeral joint effusion. There is a full-thickness tear of the anteriormost fibers of the supraspinatus tendon measuring 9 mm in AP dimension with approximately 8 mm medial retraction. This is in a background of moderate increased signal within the supraspinatus tendon consistent with tendinosis. There is also a partial-thickness articular sided tear of the infraspinatus tendon measuring approximately 9 mm in AP dimension involving approximately 30% tendon thickness. Associated moderate infraspinatus tendinosis. Normal muscle signal and bulk without fatty atrophy of the rotator cuff. Intra-articular long head biceps tendon is seen within the bicipital groove. Intra-articular long head biceps tendon is increased in signal and thickened consistent with mild tendinosis. Evaluation for labral tear limited on this nonarthrographic, motion degraded study. No evidence for fracture or osteonecrosis. Survey evaluation of the articular cartilage within normal limits. IMPRESSION: 1. Full-thickness tear of the anterior fibers of the supraspinatus tendon measuring 9 mm in AP dimension. 2. 30% partial thickness articular sided tear of the infraspinatus tendon, also measuring approximately 9 mm in AP dimension. 3. Thickening and increased signal of the intra-articular long head biceps tendon consistent with moderate tendinosis. 4. Moderate AC joint degenerative change with inferior projecting osteophytes. Electronically signed by: Mani Arvizu MD (09/26/2018 9:29 AM) [facility]-[id number]
== END | disposition home or self-care (01) ==
LOC: KCIC MRI 16:31
PROVIDERS: ATTEND Orthopaedic Surgery Sports Medicine
DX: M75.101 Unspecified rotator cuff tear or rupture of right shoulder, not specified as traumatic (principal); M19.011 Primary osteoarthritis, right shoulder; M25.711 Osteophyte, right shoulder
CPT/HCPCS: 73221

== ENCOUNTER 2018-10-30 08:20 | Day surgery (SDC) | payer OTHER ==
[~2018-10-30] VITALS: Ht 149.9 cm; Wt 90.7 kg
[~2018-10-30 08:20] MED LIST changes: +HYDROmorphone 2 MG/ML VIAL IV PRN; +IV RINGERS,LACTATED 1000ML 1,000 ML IV SCH; +LIDOCAINE 1% PF 2 ML VIAL. ID PRN; +MORPHINE SULFATE 2 MG/ML VIAL. IV PRN; -ONDA8TAB9 SL; +ONDANSETRON PF 4 MG/2 ML VIAL. IV PRN; -OXYC1TAB15 PO; +PROCHLORPERAZINE 10 MG/2 ML VIAL. IV PRN; +ceFAZolin 2GM PREMIX 2 GM/50 ML BAG IV ONE; +fentaNYL PF VIAL 100 MCG/2 ML VIAL IV PRN
[2018-10-30] MEDS ORDERED: MIDAZOLAM HCL/PF 2 MG/2 ML VIAL. ONE (08:44)
[2018-10-30] MEDS ORDERED: ONDANSETRON PF 4 MG/2 ML VIAL. ONE (08:44)
[2018-10-30] MEDS ORDERED: fentaNYL PF VIAL 100 MCG/2 ML VIAL ONE (08:44)
[2018-10-30] MEDS ORDERED: ROCURONIUM 50 MG/5 ML VIAL. ONE (08:44)
[2018-10-30] MEDS ORDERED: LIDOCAINE 2% PF 5 ML VIAL. ONE (08:44)
[2018-10-30] MEDS ORDERED: PROPOFOL 20 ML IV ONE (08:44)
[2018-10-30] MEDS ORDERED: FAMOTIDINE 20 MG/2 ML VIAL ONE (08:44)
[2018-10-30] MEDS ORDERED: BUPIVACAINE MPF 0.5% 30 ML VIAL. ONE (09:05)
[2018-10-30] MEDS ORDERED: EPINEPHrine VIAL 30 MG/30 ML VIAL ONE (09:05)
[2018-10-30] MEDS ORDERED: LIDOCAINE 1% 20 ML VIAL. ONE (09:05)
[2018-10-30] MEDS ORDERED: ROPIVacaine 0.5% PF 20 ML VIAL. ONE (09:30)
[2018-10-30] MEDS ORDERED: DEXAMETHASONE SOD PHOS 20 MG/5 ML VIAL. ONE (10:17)
[2018-10-30] MEDS ORDERED: PHENYLEPHRINE in 0.9% NACL PF 1 MG/10 ML SYRINGE. IV ONE ×2 (10:42→11:03)
[2018-10-30] MEDS ORDERED: ePHEDrine PF IN SALINE 50 MG/10 ML SYRINGE. IV ONE (11:03)
[2018-10-30] MEDS ORDERED: GLYCOPYRROLATE 1 MG/5 ML VIAL. ONE (11:25)
[2018-10-30] MEDS ORDERED: NEOSTIGMINE METHYLSULFATE 5 MG/5 ML SYRINGE. ONE (11:26)
[2018-10-30] MEDS ORDERED: SEVOFLURANE 31 TO 60 MINUTES. IH ONE (11:33)
--- NOTE | 2018-10-30 11:37 | PDOC4 ---
Operative Note Operative Note Date of procedure: 10/30/2018 Surgeon: Red Torres Rack Maker: Robin Daly APRN, who necessary for wound closure and manipulation of the arm during the procedure Preoperative diagnosis: Right shoulder rotator cuff tear Postoperative diagnosis: Same Procedure performed: Arthroscopic right shoulder rotator cuff repair Anesthesia: Gen. plus regional nerve block Findings: #1 Complete supraspinatus tear #2 fairly well-preserved glenohumeral cartilage, small area, less than a centimeter of full-thickness cartilage loss with overlying fibrotic tissue at its base next line #3 intact labrum circumferentially #3 fraying at biceps tendon, no inflammation #4 No loose bodies Blood loss: 10mL Components inserted: [employer] Helacoil anchors (2)for rotator cuff Reason for procedure: Patient is a very pleasant female who has had long- standing shoulder pain and dysfunction. She had been seen and evaluated in my outpatient orthopedic surgery clinic, please see this note for full details. She had tried and failed conservative therapies. Clinical and radiographic examination, including MRI, were consistent with the preoperative diagnosis. We had a discussion of the risks, benefits, alternatives the above surgery and he wished to proceed. Description of procedure: Patient was greeted in the preoperative holding area where the correct extremity was verified and marked. They were taken to the preoperative holding area where the anesthesiology team placed a regional nerve block. The patient was then taken back to the operative suite and antibiotics were started as they were brought back. Once in the operative room, the patient was transferred gently supine to the operating room table after successful induction of a general anesthetic. After this, she was sat up in a beachchair position maintaining his C-spine in neutral position, large pad under her legs, she was secured to the bed. We then prepped and draped her right upper extremity and shoulder girdle in our usual sterile fashion, we conducted our standard preoperative timeout. I palpated and marked surface anatomy for my planned port al sites. I then used a spinal needle to localize a posterior superior portal and incised skin in accordance with this. After this, I introduced the blunt arthroscopic trocar into the glenohumeral joint followed by the camera. I used a spinal needle to localize an anterosuperior portal and incised skin in accordance with this. I then introduced my arthroscopic probe and conducted my diagnostic arthroscopy with the above-noted findings. I then inspected her rotator cuff and noted the delamination type tear, full thickness. I created a lateral portal and debrided the leading edge, the tissue was quite friable, I also debrided the footprint, taking care not to decorticate. I then used a grasper to test mobility, the tendon has good excursion. After this, I repositioned the camera into the subacromial space and performed a bursectomy with combination of shaver and electrocautery device. I then screwed into position my cannula laterally. I then created an accessory anterolateral and posterolateral portals for suture management. I then placed my helacoil anchors and shuttled limbs through in a simple configuration. I tied these down with arthroscopic knot-tying techniques. After this, the suture ends were cut. The tear was stable to probing and to gentle rotation of the arm. I then removed all loose bony debris and the excess arthroscopic fluid. I took my final pictures prior to this. After this, all the excess fluid and instrumentation was removed. The portals were closed with simple interrupted 3-0 nylon. Steri-Strips were applied. Sterile dressing was applied followed by an abduction pillow sling. Patient tolerated surgery well. No complications. All counts correct 2 prior to wound closure. At the conclusion, she was laid supine and transferred gently supine to the recovery room cart and taken to the PACU in a stable and extubated condition. Postoperative plan is discharge him home, no nweightbearing for 6 weeks. Well get her started on physical therapy. She will follow up with me in 2 weeks, sooner should a problem arise. RED TORRES II, MD Oct 30, 2018 11:37
--- NOTE | 2018-10-30 11:40 | DISCH ---
DISCHARGE INSTRUCTIONS Condition on Discharge Condition on Discharge: Stable Activity After Discharge Activity Instructions for Disc: Other ROM activity Other activity instructions: arm to remain in sling Bathing Instructions: Shower-keep dressing dry Weight Bearing Status after Di: Non weight bearing Diet after Discharge Diet after Discharge: Regular Wound Incision Care Wound/Incision Care: Ice to area for comfort, Keep wound/cast CDI, Change dressing Contacting the DR. after DC Call your doctor for: Concerns you may have Follow-Up Follow up with: Delores in 2 wks Treatment/Equipment after DC Adaptive Equipment Issued: None MAGNOLIA TORRES II, MD Oct 30, 2018 11:40
[2018-10-30] MEDS ORDERED: OXYC1TAB15 PO (12:37)
[2018-10-30] MEDS ORDERED: ONDA8TAB9 SL (12:39)
[2018-10-30] MEDS ORDERED: oxyCODONE/APAP 5/325 1 TAB TABLET PO ONE (13:00)
[2018-10-30 13:45] VITALS: BP 116/53
== END 2018-10-30 14:39 | disposition home or self-care (01) ==
LOC: SURG 08:20
PROVIDERS: ATTEND Orthopaedic Surgery Sports Medicine
DX: S46.011A Strain of muscle(s) and tendon(s) of the rotator cuff of right shoulder, initial encounter (principal); D57.3 Sickle-cell trait; Z90.49 Acquired absence of other specified parts of digestive tract; Z98.890 Other specified postprocedural states; Z79.82 Long term (current) use of aspirin; Z79.899 Other long term (current) drug therapy; W18.2XXA Fall in (into) shower or empty bathtub, initial encounter; Y93.89 Activity, other specified; Y92.89 Other specified places as the place of occurrence of the external cause; Y99.8 Other external cause status
CPT/HCPCS: 29827; 82962; A7015; C1713; C1782; J0171; J0696; J1100; J2001; J2250; J2270; J2370; J2405; J2704; J2710; J2795; J3010; J3490; J7120

== ENCOUNTER → 2019-02-06 | Outpatient (CLI) | payer OTHER ==
[~2019-02-06] MED LIST changes: -HYDROmorphone 2 MG/ML VIAL IV PRN; -IV RINGERS,LACTATED 1000ML 1,000 ML IV SCH; -LIDOCAINE 1% PF 2 ML VIAL. ID PRN; -MORPHINE SULFATE 2 MG/ML VIAL. IV PRN; +ONDA8TAB9 SL; -ONDANSETRON PF 4 MG/2 ML VIAL. IV PRN; +OXYC1TAB15 PO; -PROCHLORPERAZINE 10 MG/2 ML VIAL. IV PRN; -ceFAZolin 2GM PREMIX 2 GM/50 ML BAG IV ONE; -fentaNYL PF VIAL 100 MCG/2 ML VIAL IV PRN
--- NOTE | 2019-02-06 10:53 | RAD ---
DATE: February 06, 2019 EXAM: DIGITAL SCREEN BILAT W/CAD HISTORY: Screening study. COMPARISON: None. Baseline exam. This study was interpreted with the benefit of Computerized Aided Detection (CAD). FINDINGS: Breast Density: SCATTERED The breast parenchyma shows scattered fibroglandular densities. Breast parenchyma level B.. There are no dominant suspicious masses, suspicious microcalcifications or evidence of architectural distortion. IMPRESSION: No mammographic indicators for malignancy. BI-RADS CATEGORY: 1 NEGATIVE RECOMMENDED FOLLOW-UP: 12M 12 MONTH FOLLOW-UP PQRS compliance statement: Patient information was entered into a reminder system with a target due date February 08, 2020 for the next mammogram. Mammography is a sensitive method for finding small breast cancers, but it does not detect them all and is not a substitute for careful clinical examination. A negative mammogram does not negate a clinically suspicious finding and should not result in delay in biopsying a clinically suspicious abnormality. "Our facility is accredited by the [employer] Mammography Program." The patient's breast density may affect the ability of mammography to detect breast cancer. There are 4 categories of breast density, A, B, C and D. Breast density A means that most of the breast tissue is replaced with adipose tissue and therefore is not dense. Breast density B means that the breast tissue is mildly dense and scattered. Breast density C means that the breast tissue is heterogeneously dense. Breast density D means that the breast tissue is very dense. Breast densities especially C and D may decrease the sensitivity of mammography to detect breast cancer. Therefore, the patient may benefit from 3-D breast mammography (3D breast tomography) as a part of their screening mammogram. Insurance may or may not pay for this additional imaging. The patient's breast density based on today's mammogram is category B.
== END | disposition home or self-care (01) ==
LOC: MAMMO 08:36
PROVIDERS: ATTEND Family Medicine
DX: Z12.31 Encounter for screening mammogram for malignant neoplasm of breast (principal)
CPT/HCPCS: 77067

== ENCOUNTER → 2020-04-14 | Outpatient (CLI) | payer OTHER ==
--- NOTE | 2020-04-14 18:45 | RAD ---
EXAMINATION: Bilateral screening mammogram, 04/14/2020 12:00 AM CLINICAL INDICATION: 65-year-old woman presenting for screening mammogram. COMPARISON: 02/06/2019 TECHNIQUE: Digital bilateral full-field CC and MLO views, and CC and MLO tomosynthesis views of the breasts were obtained. CAD was utilized. FINDINGS: The breasts contain scattered areas of fibroglandular density. There is no mass, suspicious calcification, or architectural distortion. IMPRESSION: 1. No mammographic evidence of malignancy. 2. BI-RADS 1: Negative. 3. Routine annual screening mammogram is recommended in 1 year. The patient will receive a reminder letter by mail when she is due for her next exam. Electronically signed by: Shana De La Fuente MD (04/14/2020 6:43 PM) [id number]
== END | disposition home or self-care (01) ==
LOC: MAMMO 11:01
PROVIDERS: ATTEND Family Medicine
DX: Z12.31 Encounter for screening mammogram for malignant neoplasm of breast (principal)
CPT/HCPCS: 77067

== ENCOUNTER → 2020-04-23 | Outpatient (CLI) | payer OTHER ==
--- NOTE | 2020-04-23 16:06 | RAD ---
FINGER(S) LEFT DATE: 04/23/2020 12:00 AM INDICATION: INJURY OF FINGER OF LEFT HAND. COMPARISON: None. FINDINGS: Bones: There is no evidence of acute fracture or dislocation. Osseous demineralization. Joints: Multifocal mild degenerative joint space narrowing, moderate at the DIP joints. Miscellaneous: None. IMPRESSION: No acute osseous abnormality. Electronically signed by: Anurag Lira MD (04/23/2020 4:03 PM) [id number]
== END ==
LOC: RAD 12:18
PROVIDERS: ATTEND Family Medicine
DX: S69.92XA Unspecified injury of left wrist, hand and finger(s), initial encounter (principal); X58.XXXA Exposure to other specified factors, initial encounter; Y93.89 Activity, other specified; Y92.89 Other specified places as the place of occurrence of the external cause; Y99.8 Other external cause status
CPT/HCPCS: 73140

== ENCOUNTER → 2020-06-30 | Outpatient (CLI) | payer OTHER ==
--- NOTE | 2020-06-30 16:12 | RAD ---
CT Head without contrast 06/30/2020 11:56 AM Indication: Reason: TRAUMATIC HEAD INJURY / Spl. Instructions: / History: Comparison: None Findings: No intracranial hemorrhage is seen. No evidence of acute territorial infarct is seen. Note that CT is limited in sensitivity for acute ischemia. Mild Age-related atrophic changes are noted. T here is bile patchy periventricular and deep white matter hypoattenuation which is nonspecific, but m ost commonly relates to chronic small vessel disease. No abnormal extra axial fluid collection is id entified. No mass effect or midline shift is seen. No acute osseous abnormalities are seen. Impression: 1. No acute intracranial process identified 2. Mild senescent atrophic changes, and evidence of mild chronic small vessel disease as described CT DOSING PQRS STATEMENT: One or more of the following individualized dose reduction techniques were utilized for this examinat ion: 1. Automated exposure control 2. Adjustment of the mA and/or kV according to patient size 3. Use of iterative reconstruction technique Electronically signed by: Tor Hernandes MD (06/30/2020 4:09 PM) [id number]
== END ==
LOC: CT 11:40
PROVIDERS: ATTEND Family Medicine
DX: S09.90XA Unspecified injury of head, initial encounter (principal); G31.89 Other specified degenerative diseases of nervous system; G93.89 Other specified disorders of brain; X58.XXXA Exposure to other specified factors, initial encounter; Y93.89 Activity, other specified; Y92.89 Other specified places as the place of occurrence of the external cause; Y99.8 Other external cause status
CPT/HCPCS: 70450

== ENCOUNTER → 2021-04-20 | Outpatient (CLI) | payer MEDICARE ==
[2020-10-06 07:00] VITALS: BP 108/63
[~2021-04-20] MED LIST changes: +FURO80TA3 PO; +LEXAPRO10 MG PO; +MIDO10TA PO; +OMEP20CA16 PO; +VITA25006 PO; +ZINC50TA39 PO
--- NOTE | 2021-04-20 13:50 | RAD ---
Bilateral digital screening 2-D and 3-D (digital breast tomosynthesis) mammogram: Reason for examination: Routine screening. Comparison: Mammograms from 04/14/2020 and 02/06/2019. Interpretation was made with the benefit of CAD. FINDINGS: Breast density: Category B. There are scattered areas of fibroglandular density. No suspicious breast mass, malignant appearing calcifications, or architectural distortion is seen. IMPRESSION: No evidence of malignancy. Assessment: BI-RADS 1. Negative. Recommendation: Routine screening mammograms. The patient will receive a letter with the results in the mail. Patient information will be entered i nto the mammography reminder system with a target recall date for the next mammogram. A reminder sandra er will be generated. Electronically signed by: Lexi Barriga MD (04/20/2021 1:48 PM) [id number]
== END ==
LOC: MAMMO 09:51
PROVIDERS: ATTEND Family Medicine
DX: Z12.31 Encounter for screening mammogram for malignant neoplasm of breast (principal)
CPT/HCPCS: 77063; 77067